=== PATIENT | male | born 1960 | race Two or more races ===

== ENCOUNTER → 2022-09-08 | Emergency (ER) | payer OTHER ==
[~2022-09-08] VITALS: Ht 165.1 cm; Wt 114.3 kg
[~2022-09-08] MED LIST: DILTIAZEM ER60 MG; LOSARTAN POTASS50 MG
== END | disposition left against medical advice (07) ==
LOC: ER 07:42
DX: S29.9XXA Unspecified injury of thorax, initial encounter (principal); W07.XXXA Fall from chair, initial encounter; Y93.9 Activity, unspecified; Y92.019 Unspecified place in single-family (private) house as the place of occurrence of the external cause; I10 Essential (primary) hypertension; G47.30 Sleep apnea, unspecified; Z88.0 Allergy status to penicillin; R40.2412 Glasgow coma scale score 13-15, at arrival to emergency department